=== PATIENT | male | born 1985 | race Caucasian/White ===

== ENCOUNTER 2016-07-28 07:41 | Emergency (ER) | payer MEDICAID ==
[~2016-07-28] VITALS: Ht 180.3 cm; Wt 65.0 kg
[~2016-07-28 07:41] MED LIST: AMOX875 PO; CHLO.12%30 SSP; IBUP800T23 PO; ULTR50TA PO; Z.0.NO CURRENT MEDS
[2016-07-28 07:44] VITALS: BP 134/60; PULSE 76; RESP 18; TEMP 97.5; O2SAT 97
[2016-07-28] MEDS ORDERED: AMOX500C PO (08:01)
[2016-07-28] MEDS ORDERED: PERI0.126 SWISH-SPIT (08:01)
[2016-07-28] MEDS ORDERED: IBUP800T23 PO (08:01)
[2016-07-28] MEDS ORDERED: MAGICADU2 SWISH-SPIT (08:01)
--- NOTE | 2016-07-28 08:01 | PD ---
HPI Chief Complaint: Oral / Dental Pain or Problem Time Seen by Provider: 07:58 Travel History International Travel<30 days: No Contact w/Intl Traveler<30days: No Traveled to known affect area: No History of Present Illness HPI 31-year-old male presents to the emergency Department with complaint of right upper tooth pain since Wednesday and is requesting antibiotics. Denies dental trauma. Denies fever, chills, nausea, vomiting. Denies facial swelling or redness. Denies difficulty swallowing. Pain is aggravated with palpation and eating. Has taken Tylenol with some relief of pain. No known allergies. No other modifying factors or associated signs and symptoms. PFSH Past Medical History Diminished Hearing: No Past Surgical History Tonsillectomy: Yes Social History Alcohol Use: No Tobacco Use: Yes (2PPD) Allergies-Medications (Allergen,Severity, Reaction): Coded Allergies: No Known Allergies (Verified , 07/28/16) Reported Meds & Prescriptions Reported Meds & Active Scripts Active Magic Mouthwash Adult Liq (Multi-Ingredient Mouthwash/Gargle) 120 Ml Susp 5 Ml SWISH-SPIT Q3HR PRN Each 5mL contains: Nystatin 200,000units, Diphenhydramine 4.25mg, Viscous Lidocaine 10mg, Herrmann syrup 0.8 mL Peridex Liq (Chlorhexidine Gluconate (Mouth) Liq) 0.12% Soln 15 Ml SWISH-SPIT BID 10 Days Amoxicillin 500 Mg Cap 500 Mg PO BID 10 Days Ibuprofen 800 Mg Tab 800 Mg PO Q6HR PRN Ultram (Tramadol HCl) 50 Mg Tab 1-2 Tabs PO Q6 PRN Peridex Oral R0.12 % 0.12 % Francia 15 Ml SSP BID 10 Days Amoxicillin 875 Mg Tab 875 Mg PO BID Ibuprofen 800 Mg Tab 800 Mg PO Q8 PRN Reported No Current Meds (Miscellaneous Medication) [facility] Review of Systems Except as stated in HPI: all other systems reviewed are Neg Physical Exam Narrative GENERAL: Well-nourished, well-developed male patient, in no acute distress; afebrile, nontoxic-appearing SKIN: Warm and dry. HEAD: Atraumatic. Normocephalic. No facial edema, erythema, tenderness on palpation. No lymphadenopathy. EYES: Pupils equal and round. No scleral icterus. No injection or drainage. ENT: Mucosa pink and moist. Airway patent. MOUTH: Poor dentition throughout. Mucous membranes moist, no lesions, tongue and gums appear normal. Right upper tooth #2 with tenderness on palpation and dental caries; surrounding gingiva is without erythema, edema, drainage; no obvious abscess noted. NECK: Trachea midline. No lymphadenopathy. CARDIOVASCULAR: Regular rate. RESPIRATORY: No accessory muscle use. GASTROINTESTINAL: Flat. MUSCULOSKELETAL: No obvious deformities. No clubbing. No cyanosis. No edema. NEUROLOGICAL: Awake and alert. Oriented 3. No obvious cranial nerve deficits. Motor grossly within normal limits. Normal speech. PSYCHIATRIC: Appropriate mood and affect; insight and judgment normal. Data Data Last Documented VS Vital Signs Date Time Temp Pulse Resp B/P Pulse Ox O2 Delivery O2 Flow Rate FiO2 07/28/16 07:44 97.5 76 18 134/60 97 Room Air MDM Medical Decision Making Medical Screen Exam Complete: Yes Emergency Medical Condition: Yes Medical Record Reviewed: Yes Differential Diagnosis Dentalgia, dental abscess, gingivitis, dental caries Narrative Course 31-year-old male physical exam consistent with right upper tooth #2 dentalgia. There is no obvious abscess. Patient has poor dentition throughout. No facial edema or erythema. No lymphadenopathy. Patient is afebrile. Denies fever, chills, nausea, vomiting at home. Emergency dental information sheet provided. Ibuprofen, Magic mouthwash, Peridex mouth rinse, amoxicillin prescribed for home. Instructed patient to follow up with dentist. Patient verbalizes understanding and agreement treatment plan. Patient is medically cleared and stable for discharge. Discussed reasons to return to the emergency department. Instructed patient to follow up with primary care provider. Patient agrees with treatment plan. The patients vital signs are stable and the patient is stable for outpatient follow-up and treatment. Patient discharged home, stable and in no acute distress. Diagnosis Primary Impression: Dentalgia Referrals: Dentist Primary Care Physician Patient Instructions: Dental Abscess (ED), Dental Caries (ED), General Instructions, Toothache (ED) Departure Forms: Tests/Procedures, Work Release Enter return to work date: Jul 29, 2016 Additional Instructions: Complete full course of antibiotics Ibuprofen as directed and as needed to reduce pain and inflammation Use Magic mouthwash rinse as directed and as needed to decrease pain Use Peridex as directed for oral hygiene Warm compresses to the affected area Follow-up with dentist Follow-up with primary care provider Return to emergency department immediately with worsening of symptoms Med/Other Pt SpecificInfo: Prescription(s) given Scripts Uceqoyje-Xmqztvqxhotjooq-Lofwqqesm Liq (Magic Mouthwash Adult Liq)120 Ml Susp5 Ml SWISH-SPIT Q3HR PRN (PAIN SCALE 1 TO 10) #120 ML Ref 0 Each 5mL contains: Nystatin 200,000units, Diphenhydramine 4.25mg, Viscous Lidocaine 10mg, Herrmann syrup 0.8 mL Prov:Paola Nash 07/28/16 Chlorhexidine Gluconate (Mouth) Liq (Peridex Liq)0.12% Soln15 Ml SWISH-SPIT BID 10 Days Ref 0 Prov:Paola Nash 07/28/16 Amoxicillin 500 Mg [id number] Mg PO BID 10 Days Ref 0 Prov:Paola Nash 07/28/16 Ibuprofen 800 Mg [id number] Mg PO Q6HR PRN (PAIN) #30 TAB Ref 0 Prov:Paola Nash 07/28/16 Disposition: 01 DISCHARGE HOME Condition: Stable Paola Nash Jul 28, 2016 08:01
== END 2016-07-28 08:18 | disposition home or self-care (01) ==
LOC: NEPB 07:41
DX: K08.89 Other specified disorders of teeth and supporting structures (principal); F17.210 Nicotine dependence, cigarettes, uncomplicated
CPT/HCPCS: 99282

== ENCOUNTER 2017-08-14 15:10 | Emergency (ER) | payer MEDICAID ==
[~2017-08-14] VITALS: Ht 177.8 cm; Wt 65.0 kg
[~2017-08-14 15:10] MED LIST changes: +AMOX500C PO; +IBUP1TAB7 PO; +MAGICADU2 SWISH-SPIT; +PERI0.126 SWISH-SPIT
[2017-08-14 15:11] VITALS: BP 110/61; PULSE 98; RESP 14; TEMP 98.7; O2SAT 99
[2017-08-14] MEDS ORDERED: AZIT500T2 PO (17:16)
[2017-08-14] MEDS ORDERED: BENZ100 PO (17:16)
--- NOTE | 2017-08-14 17:17 | PD ---
HPI Chief Complaint: Cold / Flu Symptoms Time Seen by Provider: 16:58 Travel History International Travel<30 days: No Contact w/Intl Traveler<30days: No Traveled to known affect area: No History of Present Illness HPI 32-year-old male presents to the emergency department with complaint of cold/ flu symptoms 2 weeks. Reports nasal congestion, cough, sore throat, fevers. Reports T-max of 103.0. Reports nausea without vomiting. Denies shortness of breath, wheezing, chest pain. Says his entire family has been sick with similar symptoms. Has been taking dugr-rem-xmphahw "stuff" to treat his symptoms. No known relieving or aggravating factors. Primary care provider is Dr. Islas. No known allergies. Denies significant past medical history. Has no other medical complaints. No other modifying factors or associated signs and symptoms. PFSH Past Medical History Diminished Hearing: No Past Surgical History Tonsillectomy: Yes Social History Alcohol Use: No Tobacco Use: Yes (1PPD) Substance Use: No Allergies-Medications (Allergen,Severity, Reaction): Coded Allergies: No Known Allergies (Verified , 07/28/16) Reported Meds & Prescriptions Reported Meds & Active Scripts Active Tessalon Perles (Benzonatate) 100 Mg Cap 100 Mg PO TID PRN 3 Days Azithromycin 500 Mg Tab 500 Mg PO DAILY Magic Mouthwash Adult Liq (Multi-Ingredient Mouthwash/Gargle) 120 Ml Susp 5 Ml SWISH-SPIT Q3HR PRN Each 5mL contains: Nystatin 200,000units, Diphenhydramine 4.25mg, Viscous Lidocaine 10mg, Herrmann syrup 0.8 mL Peridex Liq (Chlorhexidine Gluconate (Mouth) Liq) 0.12% Soln 15 Ml SWISH-SPIT BID 10 Days Amoxicillin 500 Mg Cap 500 Mg PO BID 10 Days Ibuprofen 800 Mg Tab 800 Mg PO Q6HR PRN Ultram (Tramadol HCl) 50 Mg Tab 1-2 Tabs PO Q6 PRN Peridex Oral Rinse (Chlorhexidine Gluconate) 0.12 % Francia 15 Ml SSP BID 10 Days Amoxicillin 875 Mg Tab 875 Mg PO BID Ibuprofen 800 Mg Tab 800 Mg PO Q8 PRN Reported No Current Meds (Miscellaneous Medication) Misc Review of Systems Except as stated in HPI: all other systems reviewed are Neg Physical Exam Narrative GENERAL: Well-nourished, well-developed male patient, in no acute distress; afebrile, nontoxic-appearing SKIN: Warm and dry. No rash. HEAD: Atraumatic. Normocephalic. EYES: Pupils equal and round. No scleral icterus. No injection or drainage. ENT: Mucosa pink and moist. No erythema or exudates. No uvular edema. No uvular , palatal, or tonsillar deviation. Airway patent. EARS: Bilateral pinnae and external canals appear within normal limits. Bilateral tympanic membranes without erythema, dullness or perforation. NECK: Trachea midline. No lymphadenopathy. CARDIOVASCULAR: Regular rate and rhythm. No murmur appreciated. RESPIRATORY: No accessory muscle use. Clear to auscultation. Breath sounds equal bilaterally. No retractions or tachypnea. GASTROINTESTINAL: Abdomen soft, non-tender, nondistended. Hepatic and splenic margins not palpable. Bowel sounds are active 4 quadrants. MUSCULOSKELETAL: No obvious deformities. No clubbing. No cyanosis. No edema. NEUROLOGICAL: Awake and alert. Oriented 3. No obvious cranial nerve deficits. Motor grossly within normal limits. Normal speech. Moves all extremities. 5/5 strength to all extremities. PSYCHIATRIC: Appropriate mood and affect; insight and judgment normal. Data Data Last Documented VS Vital Signs Date Time Temp Pulse Resp B/P (MAP) Pulse Ox O2 Delivery O2 Flow Rate FiO2 08/14/17 17:33 18 08/14/17 15:11 98.7 98 99 Room Air Orders Orders Ed Discharge Order (08/14/17 17:17) MDM Medical Decision Making Medical Screen Exam Complete: Yes Emergency Medical Condition: Yes Medical Record Reviewed: Yes Differential Diagnosis Viral illness, upper respiratory infection, influenza, strep pharyngitis Narrative Course 32-year-old male with cold/flu symptoms 2 weeks. Physical exam is unremarkable. I will treat patient with antibiotics secondary to length of illness. Azithromycin, Kelvin Ferrer prescribed for home. Instructed patient to follow up with primary care provider. Patient verbalizes understanding and agreement with treatment plan. Patient is medically cleared and stable for discharge. Discussed reasons to return to the emergency department. Patient agrees with treatment plan. The patients vital signs are stable and the patient is stable for outpatient follow-up and treatment. Patient discharged home, stable and in no acute distress. Diagnosis Primary Impression: Upper respiratory infection Qualified Codes: J06.9 - Acute upper respiratory infection, unspecified Referrals: [facility] Primary Care Physician Patient Instructions: General Instructions, Safe Use of Cough and Cold Medicines (ED), Upper Respiratory Infection (ED) Departure Forms: Tests/Procedures, Work Release Enter return to work date: Aug 16, 2017 Additional Instructions: Ibuprofen or Tylenol as directed and as needed to reduce fever; may alternate ibuprofen and Tylenol as needed every 3 hours to minimize fever Lzxg-zvc-qrfalle cold/flu medications as directed and as needed for symptom management Get plenty of sleep/rest Drink plenty of fluids to prevent dehydration; such as Gatorade, Powerade, Pedialyte [place] diet to encourage nutrition such as crackers, fruit, applesauce, toast, soup etc. Use an air humidifier/turn off ceiling fans Follow-up with your primary care provider within 1 day Return immediately to the emergency department with worsening of symptoms Med/Other Pt SpecificInfo: Prescription(s) given Scripts Benzonatate (Tessalon Perles) 100 Mg Cap 100 MG PO TID Y for COUGH for 3 Days, CAP 0 Refills Prov: Paola Nash 08/14/17 Azithromycin (Azithromycin) 500 Mg Tab 500 MG PO DAILY for Infection, #5 TAB 0 Refills Prov: Paola Nash 08/14/17 Disposition: 01 DISCHARGE HOME Condition: Stable Paola Nash Aug 14, 2017 17:17
== END 2017-08-14 17:33 | disposition home or self-care (01) ==
LOC: NEPD 15:10
DX: J06.9 Acute upper respiratory infection, unspecified (principal); F17.200 Nicotine dependence, unspecified, uncomplicated
CPT/HCPCS: 99283